=== PATIENT | female | born 1940 | race Caucasian/White ===

== ENCOUNTER 2017-03-16 18:17 | Inpatient (IN) | payer MEDICARE, MEDICAID ==
[~2017-03-16] VITALS: Ht 172.7 cm; Wt 154.1 kg
[~2017-03-16 18:17] MED LIST: COQ1050 MG PO; KLONOPIN DPS1 MG PO; LEXAPRO20 MG PO; LISINOPRIL-HCT1 EACH PO; MIRTAZAPINE30 MG PO; MULTIVITAMINS1 EAC1 PO; NEXIUM40 MG PO; PRAVACHOL10 MG PO; VITAMIN D1000 UNIT PO; XANAX0.5 MG PO; ZETIA10 MG PO
--- NOTE | 2017-03-18 15:49 | HP ---
ADMIT: 03/16/2017 RM/LOC: 522 [facility] MR#: [id number] [address] [address] [place] [address] History and Physical SEX: F AGE: 76 : 1940 DATE OF SERVICE: CHIEF COMPLAINT: Shortness of breath. HISTORY OF PRESENT ILLNESS: The patient is a pleasant 76-year-old female, who normally sees Dr. Ojeda in clinic. Saw PA over in the office earlier today. Got a shot of antibiotics and some prednisone with close followup as an outpatient. She went over to longterm today where she normally resides at assisted living. Got abruptly more short of breath. More cough. Toxic in to the 70s. Sent to the emergency room. She really states she feels quite well. Does endorse that she has a little bit of a cough. No major fevers. States about two weeks ago, she had an upper respiratory tract infection. Some cough at that time. Never really felt like she fully recovered. Otherwise, no nausea. No vomiting. No new orthostasis. No chest pain. Has been taking her medication according to the assisted living normally. Former smoker, quit just a couple of years ago, she states. No known history of COPD that she is aware of. PAST MEDICAL HISTORY: 1. Hypertension. 2. Depression. 3. History of breast cancer in the past. 4. Former tobacco abuse. 5. Hypertension. MEDICATIONS: She is on: 1. Clonazepam. 2. Fluticasone. 3. Letrozole. 4. Lexapro. 5. Lisinopril. 6. Hydrochlorothiazide. 7. Loperamide. 8. Lovastatin. 9. Mirtazapine. 10.Mucinex. 11.Vitamin D3. 12.Proventil. 13.Omeprazole. 14.Naproxen. 15.Xanax. 16.Zetia. 17.Zyrtec. Please see list for full details. FAMILY HISTORY: Significant for mother with diabetes and father with heart disease. ADMIT: 03/16/2017 RM/LOC: 522 [facility] MR#: [id number] [address] [address] [place] [address] History and Physical SEX: F AGE: 76 : 1940 SOCIAL HISTORY: Former smoker. . Lives at [facility], [facility]. REVIEW OF SYSTEMS: As per HPI. Otherwise, completely reviewed and negative. PHYSICAL EXAMINATION: VITAL SIGNS: 163/78, heart rate 76, respiratory rate 20, O2 saturation 83% on room air, temperature 99.2. GENERAL: She is alert and oriented x3. Very pleasant. Talkative. HEENT: Normocephalic, atraumatic. Pupils are equal bilaterally. Dry mucous membranes. NECK: No lymphadenopathy. Soft, supple. Trachea midline. LUNGS: Diffuse expiratory rhonchi throughout. Symmetrically. Some increased rales to her left base as well posteriorly. HEART: Regular rate and rhythm. No murmurs, rubs, or gallops. ABDOMEN: Soft, nontender, and nondistended. Bowel sounds present. Obese. EXTREMITIES: No cyanosis or clubbing. Trace edema present bilaterally. SKIN: No rashes noted. Dry. NEUROLOGICAL: No focal deficits noted. Cranial nerves II through XII are grossly intact. LABORATORY AND X-RAY DATA: On her CT scan, she has pulmonary nodule, now about a cm in size and a little bit bigger. She has left-sided area of atelectasis in the lingula significantly increased in size since 2014. Carbon dioxide 39, procalcitonin less than 0.05, lactic acid 1.2, hemoglobin 12.9, white count 9.5, creatinine 0.9. AST and ALT within normal limits. EKG reviewed, shows no acute findings. ASSESSMENT: 1. Pneumonia, possible postobstructive. 2. Acute chronic obstructive pulmonary disease exacerbation. ADMIT: 03/16/2017 RM/LOC: 522 [facility] MR#: [id number] [id number] [address] [place] [address] History and Physical SEX: F AGE: 76 : 1940 3. Lung nodule, needs outpatient followup. 4. History of breast cancer. 5. Hypertension. 6. Morbid obesity. PLAN: At this point in time, we will treat her with antibiotics for suspected postobstructive pneumonia. We will plan an outpatient repeat scan in the very near future, short-term followup in about a month and a persistent. Likely needs a full pulmonary evaluation with possible bronchoscopy. We will defer to primary care provider at that time as an outpatient. We will try to get her improved in the meantime. We will treat her for acute COPD exacerbation, steroids, bronchodilators. The patient is agreeable to plan. Henry Olsen MD/ lucia JOB #: [id number] CC: Henry Olsen, Attending Physician Henry Olsen, Family Physician
--- NOTE | 2017-03-19 05:33 | CO ---
ADMIT: 03/16/2017 RM/LOC: 522 [facility] MR#: [id number] [address] [address] [place] [address] Consultation SEX: F AGE: 76 : 1940 DATE OF CONSULTATION: 03/18/2017 ATTENDING PHYSICIAN: Henry Olsen CONSULTING PHYSICIAN: Romero Matt MD HISTORY OF PRESENT ILLNESS: Ms. Da Silva is a pleasant 76-year-old, white female, former smoker, who quit a few years ago. Prior to that, she had smoked a pack of cigarettes a day for over 40 years. She was admitted to the hospital on 02/14/2017 with increasing shortness of breath, hypoxemia, and cough. She was diagnosed with left lingular pneumonia. She actually had been doing fairly well until recently. She saw Dr. Ojeda in the clinic, and got a pneumonia vaccine as well as she said a flu shot. She was doing well, got back to [facility], and then started getting more short of breath. She felt she was coming down with a "bad cold." She started having more cough, phlegm, and mucus production. Checked an oxygen level, was noted to be in the 70s on room air. She was transported to the Emergency Department. In the Emergency Department, labs and x-rays were obtained. Chest x-ray showed left upper lobe/lingular pneumonia. Subsequently, CT scan was performed, showing dense left lingular pneumonia. She was seen in consultation. CT scan was reviewed, there was no obvious endobronchial obstructing lesion, but she has very significant dense left lingular pneumonia. She does have previous history of right breast cancer, and underwent right mastectomy in February of 2015. PAST MEDICAL HISTORY: Significant for hypertension, depression, previous breast cancer with right mastectomy. Does not have a formal diagnosis of COPD, but had been greater than one pack of cigarettes a day smoker for about 40 ears and quit about 5 years ago. She also has history of depression. ALLERGIES: SHE HAS NO KNOWN OR LISTED MEDICAL ALLERGIES. MEDICATIONS: List of home medications includes; 1. Aleve. 2. Calcium citrate. 3. Clonazepam 2 mg b.i.d. 4. Recently started on Zithromax 250 mg daily. SOCIAL HISTORY: She is . She is a former smoker, smoked a pack cigarettes a day for over 40 years. Quit about 5 years ago. FAMILY HISTORY: No family history of underlying lung disease. Mother had diabetes. Father has history of heart disease. REVIEW OF SYSTEMS: As above. All organ systems reviewed. Significant positives and negatives discussed above. ADMIT: 03/16/2017 RM/LOC: 522 [facility] MR#: [id number] [address] [address] [place] [address] Consultation SEX: F AGE: 76 : 1940 Additionally, she is not currently having any significant cough or sputum production, but did have significant amount at the time of entry into the hospital. She does not have any hemoptysis. No fevers, chills, or sweats. Denies significant symptoms of heartburn or reflux. No chest pain or back pain. No recent change in bowel or bladder function. PHYSICAL EXAMINATION: VITAL SIGNS: Currently, afebrile, though T-max of 99.5. Blood pressure 148/72, pulse of 80. Oxygen saturation currently 90% to 93% on supplemental oxygen 5 L/minute. GENERAL: This is a well-developed, well-nourished, elderly white female, currently in no acute respiratory distress at rest. HEENT: Shows head to be normocephalic and atraumatic. Pupils are equal and reactive. Nares patent. Posterior hypopharynx is clear of acute exudates or lesions. She has poor oral dentition. NECK: Supple without adenopathy. CHEST: Reveals mild hyperinflation. Diminished breath sounds noted in the left lung base. Some central rhonchi are noted. HEART: Regular, no murmur. ABDOMEN: Soft, nondistended, nontender without organomegaly or masses. EXTREMITIES: Showed no clubbing, cyanosis, trace of peripheral edema. No skin rashes noted. No focal neurologic deficits noted. She is awake, alert, and oriented. X4. DIAGNOSTIC DATA: Review of CT scan shows one very significant left-sided atelectasis and pneumonia. There was no definitive endobronchial obstructing lesion, but suggest a fairly significant pneumonia. She has been started on IV antibiotics with Levaquin which she will continue with. IV steroids, and inhaled bronchodilators. I am going to increase the frequency of the bronchodilators, and add Mucomyst. Repeated chest x-ray in the morning. If the x-ray is not improved, then we will go ahead and proceed with diagnostic therapeutic bronchoscopy. Probably have to do this Tuesday as I am going to be out of town on Tuesday during the daytime hours. She has acute hypoxic respiratory failure, secondary to the above. ADMIT: 03/16/2017 RM/LOC: 522 [facility] MR#: [id number] [address] [place] [address] [facility] [place] [address] Consultation SEX: F AGE: 76 : 1940 She has probable chronic obstructive lung disease. No PFTs have been done or available for review. She is not on chronic oxygen therapy, does not use any normal inhaled bronchodilators. She has previous history of right breast cancer with right mastectomy in 2014. No evidence of recurrence. She has history of hypertension. PLAN: As mentioned above, we will increase aggressive pulmonary toilet, repeat chest x-ray in the morning. If this is not any better, then proceed with diagnostic and therapeutic bronchoscopy on Tuesday. Romero Matt MD/ lucia JOB #: [id number] CC: Henry Olsen, Attending Physician Debi Ojeda, Family Physician
--- NOTE | 2017-03-20 01:35 | ER ---
ADMIT: 03/16/2017 RM/LOC: 522 [facility] MR#: [id number] [address] [address] [place] [address] Emergency Room Report SEX: F AGE: 76 : 1940 DATE: 03/16/2017 ADDENDUM: The patient was checked out to me by Dr. Story, with results of the CBC, chemistries. CT angio of her chest pending. CBC was normal. Chemistries normal other than a CO2 of 39. Lactic acid was 1.2, procalcitonin was less than 0.05, and cardiac enzymes were normal. A CT angio of the chest revealed no PE, but there was significant atelectasis noted primarily in the left lingula with an effusion. There is also slightly enlarged lymph node on the left upper lobe when compared to previous study. The fact that it could be pneumonia, but there is also possibility of tumor that could be contributing to this atelectasis. The patient will be getting admitted to Dr. Ojeda's service and Dr. Olsen, who will be writing admission orders. She was given a dose of antibiotics in the Emergency Department. DIAGNOSES: 1. Hypoxia. 2. Atelectasis, left lung. 3. Enlarged lymph node, left lung. 4. Pneumonia. 5. Short of breath. Conner Swain MD/ lizl JOB #: [id number] CC: Henry Olsen MD, Attending Physician Henry Olsen MD, Family Physician
--- NOTE | 2017-03-21 07:38 | OR ---
ADMIT: 03/16/2017 RM/LOC: 522 [facility] MR#: [id number] [address] [address] [place] [address] Operative/Delivery Room Report SEX: F AGE: 76 : 1940 SURGERY DATE: 03/20/2017 SURGEON: Romero Matt MD NAME OF PROCEDURE: Flexible fiberoptic bronchoscopy with endobronchial biopsy. INDICATION: Left upper lobe/lingular pneumonia. 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 ANESTHESIA: General. OPERATIVE NOTE: The patient was seen in the main OR. After informed consent was obtained. Bronchoscopy was performed. This was under general anesthesia. She was intubated and placed under general anesthesia, examination of the tracheobronchial tree was then performed. Main area of the trachea was normal. Some retained secretions were present in the distal trachea, and these were suctioned clear. Right bronchial segments 1 through 10 and subsegments were identified. No evidence of endobronchial disease was seen. Following this, the bronchoscope was advanced into the left tracheobronchial tree. Left mainstem was patent. Left lingula was normal. Left upper lobe was occluded with an endobronchial tumor. This appeared to be quite vascular, and was obstructing the left upper lobe. Left lower lobe was normal. After visualization, the bronchoscope was directed back into the left upper lobe, topical adrenaline solution was applied to the endobronchial tumor. Following that, several (10) endobronchial biopsies of the left upper lobe lesion were obtained and sent for histologic evaluation. At the end of the procedure, the airway was patent, the secretions were suctioned clear. This appears to be a polypoid lesion, though no direct stalk was identified. This certainly could represent a primary lung cancer, carcinoid, or potentially metastatic tumor though less likely given the endobronchial location. No significant bleeding was noted. The patient tolerated the procedure well. She was extubated in the operating room, sent to recovery room in stable condition. Post procedure chest x-ray, shows no complications or pneumothorax. Romero Matt MD/ lucia JOB #: [id number] CC: Henry Olsen, Attending Physician Debi Ojeda, Family Physician
[2017-03-24] MEDS ORDERED: CALCIUM CITRAT250 MG PO (11:53)
[2017-03-24] MEDS ORDERED: FEMARA DPS2.5 MG PO (11:54)
[2017-03-24] MEDS ORDERED: COUGH DROPS5 MG PO (11:54)
[2017-03-24] MEDS ORDERED: LEXAPRO DPS20 MG PO (11:57)
[2017-03-24] MEDS ORDERED: IMODIUM DPS2 MG PO (13:46)
[2017-03-24] MEDS ORDERED: MUCINEX600 MG PO (13:47)
[2017-03-24] MEDS ORDERED: NAPROSYN DPS250 MG PO (13:48)
[2017-03-24] MEDS ORDERED: [UNRECOGNIZED DRUG - SUPPLY] NS (13:48)
[2017-03-24] MEDS ORDERED: PROTONIX40 MG PO (13:49)
[2017-03-24] MEDS ORDERED: PROVENTIL HFA6.7 GM IH (13:49)
[2017-03-24] MEDS ORDERED: TAB-A-VITE1 EACH PO (13:49)
[2017-03-24] MEDS ORDERED: TUSSIN COU15 MG/5 ML PO (13:50)
[2017-03-24] MEDS ORDERED: XANAX DPS0.25 MG PO (13:52)
[2017-03-24] MEDS ORDERED: ZYRTEC DPS10 MG PO (13:53)
[2017-03-24] MEDS ORDERED: DELTASONE DPS20 MG PO (13:53)
[2017-03-24] MEDS ORDERED: LEVAQUIN DPS750 MG PO (13:54)
[2017-03-24] MEDS ORDERED: DUONEB DPS3 ML IH (14:05)
--- NOTE | 2017-03-29 14:03 | DS ---
ADMIT: 03/16/2017 RM/LOC: 522 [facility] MR#: [id number] [address] [address] [place] [address] Discharge Summary SEX: F AGE: 76 : 1940 ADMISSION DATE: 03/16/2017 DISCHARGE DATE: 03/22/2017 CONSULTATIONS: None. PROCEDURES: None. FINAL DIAGNOSES: 1. Acute chronic obstructive pulmonary disease exacerbation. 2. Pneumonia, possible postobstructive. 3. Hypertension. 4. History of breast cancer. REASON FOR ADMISSION: The patient is a very pleasant, 76-year-old female, who presented to the emergency room with increasing shortness of breath while at skilled care. She had been there less than 24 hours. They thought that she was worsening and had sats down to the 70s on room air. Sent to the ER and ultimately for admission. HOSPITAL COURSE: The patient was admitted. Placed on antibiotics. Bronchodilators. Steroids. Lung sounds so slowly and steadily improved. She overall did not report much shortness of breath and felt safe and stable for discharge on day of discharge. She was requiring oxygen still. There was initial question of postobstructive pneumonia versus possible endobronchial lesion, slight increase in the size of one pulmonary nodule. She does have a longstanding history of smoking in the past. Needs pulmonary workup further as an outpatient with likely repeat imaging within the month plus or minus pulmonary evaluation with bronchoscopy, etc. We will see how she does given her risk factors. DISCHARGE INSTRUCTIONS: She will discharge to home. Will have a week of Levaquin. Steroid taper. Please see list for full details. She will follow up with Dr. Ojeda or someone else in the clinic in the next 5-7 days. Repeat imaging chest x-ray in the next month as well as possible CT scan in the next month. Henry Olsen MD/ kathya JOB #: [id number] CC: Henry Olsen MD, Attending Physician Debi Ojeda MD, Family Physician
== END 2017-03-22 17:00 | DRG 166 ==
LOC: ER 18:17 → 5MS 20:48
PROVIDERS: ADMIT Internal Medicine
PROC: 0BBG8ZX Excision of Left Upper Lung Lobe, Via Natural or Artificial Opening Endoscopic, Diagnostic (ICD-10-PCS; principal; 2017-03-20)
DX: J44.0 Chronic obstructive pulmonary disease with (acute) lower respiratory infection (principal); J18.9 Pneumonia, unspecified organism; J96.01 Acute respiratory failure with hypoxia; C34.12 Malignant neoplasm of upper lobe, left bronchus or lung; Z68.43 Body mass index [BMI] 50.0-59.9, adult; J44.1 Chronic obstructive pulmonary disease with (acute) exacerbation; R91.1 Solitary pulmonary nodule; E66.01 Morbid (severe) obesity due to excess calories; I10 Essential (primary) hypertension; F32.9 Major depressive disorder, single episode, unspecified; Z87.891 Personal history of nicotine dependence; Z85.3 Personal history of malignant neoplasm of breast; Z90.11 Acquired absence of right breast and nipple

== ENCOUNTER → 2017-04-04 | Outpatient (CLI) | payer MEDICARE, MEDICAID ==
[~2017-04-04] MED LIST changes: +CALCIUM CITRAT250 MG PO; +COUGH DROPS5 MG PO; +DELTASONE DPS20 MG PO; +DUONEB DPS3 ML IH; +FEMARA DPS2.5 MG PO; +IMODIUM DPS2 MG PO; +LEVAQUIN DPS750 MG PO; +LEXAPRO DPS20 MG PO; +MUCINEX600 MG PO; +NAPROSYN DPS250 MG PO; +PROTONIX40 MG PO; +PROVENTIL HFA6.7 GM IH; +TAB-A-VITE1 EACH PO; +TUSSIN COU15 MG/5 ML PO; +XANAX DPS0.25 MG PO; +ZYRTEC DPS10 MG PO; +[UNRECOGNIZED DRUG - SUPPLY] NS
== END | disposition home or self-care (01) ==
LOC: RAD.S 03-31 09:00
DX: C34.90 Malignant neoplasm of unspecified part of unspecified bronchus or lung (principal); C50.511 Malignant neoplasm of lower-outer quadrant of right female breast; I10 Essential (primary) hypertension; R91.1 Solitary pulmonary nodule; K80.20 Calculus of gallbladder without cholecystitis without obstruction